=== PATIENT | male | born 1990 | race Caucasian/White ===

== ENCOUNTER → 2022-05-01 10:20 | Outpatient (CLI) | payer MEDICAID, SELFPAY ==
[2022-05-01 20:39] LABS: Barbiturates Screen,Urine Negative ng/ml (<200)
[2022-05-01 20:40] LABS: Benzodiazepines Screen,Urine Negative ng/ml (<200)
[2022-05-01 20:41] LABS: Cannabinoid Screen,Urine Positive ng/ml (<50); Cocaine Screen,Urine Negative ng/ml (<300)
[2022-05-01 20:42] LABS: Methadone Screen,Urine Negative ng/ml (<300)
[2022-05-01 20:43] LABS: Opiate Screen,Urine Negative ng/ml (<300); Phencyclidine Screen,Urine Negative ng/ml (<25)
[2022-05-06 09:39] LABS: Amphetamine Positive (.); Amphetamine (GC/MS) >3000 ng/mL (Cutoff=500); Amphetamines Positive (.); Methamphetamine Positive (.); Methamphetamine (GC/MS) >3000 ng/mL (Cutoff=500)
== END ==
PROVIDERS: PCP Emergency Medicine; Visit Provider Emergency Medicine
DX: Z79.899 Other long term (current) drug therapy (principal)
CPT/HCPCS: 80305; 80324

== ENCOUNTER → 2022-12-15 10:55 | Outpatient (CLI) | payer MEDICAID, SELFPAY ==
[2022-12-15 20:12] LABS: Cannabinoid Screen,Urine Negative ng/ml (<50)
[2022-12-15 20:13] LABS: Cocaine Screen,Urine Negative ng/ml (<300)
[2022-12-15 20:14] LABS: Opiate Screen,Urine Negative ng/ml (<300)
[2022-12-15 20:36] LABS: Amphetamine/Metha Screen,Urine Negative ng/ml (<1000)
[2022-12-15 20:37] LABS: Benzodiazepines Screen,Urine Negative ng/ml (<200)
[2022-12-15 20:38] LABS: Phencyclidine Screen,Urine Negative ng/ml (<25)
[2022-12-15 22:15] LABS: Methadone Screen,Urine Negative ng/ml (<300)
[2022-12-16 00:47] LABS: Barbiturates Screen,Urine Negative ng/ml (<200)
== END ==
PROVIDERS: PCP Emergency Medicine; Visit Provider Emergency Medicine
DX: Z79.899 Other long term (current) drug therapy (principal)
CPT/HCPCS: 80305

== ENCOUNTER 2023-06-22 18:57 | Outpatient (CLI) | payer MEDICAID, SELFPAY ==
[2023-06-22 20:02] LABS: Amphetamine/Metha Screen,Urine Negative ng/ml (<1000)
[2023-06-22 20:03] LABS: Barbiturates Screen,Urine Negative ng/ml (<200)
[2023-06-22 20:04] LABS: Benzodiazepines Screen,Urine Positive ng/ml (<200); Cannabinoid Screen,Urine Negative ng/ml (<50)
[2023-06-22 20:05] LABS: Cocaine Screen,Urine Positive ng/ml (<300)
[2023-06-22 20:06] LABS: Methadone Screen,Urine Negative ng/ml (<300); Opiate Screen,Urine Negative ng/ml (<300)
[2023-06-22 20:07] LABS: Phencyclidine Screen,Urine Negative ng/ml (<25)
== END 2023-06-22 23:59 ==
LOC: LAB.DROPOF 18:58
PROVIDERS: PCP Nurse Practitioner Family; Visit Provider Nurse Practitioner Family
DX: Z79.899 Other long term (current) drug therapy (principal)
CPT/HCPCS: 80307